=== PATIENT | female | born 1985 | race African-American/Black ===

== ENCOUNTER 2022-09-24 22:11 | Emergency (ER) | payer SELFPAY ==
[~2022-09-24] VITALS: Ht 177.8 cm; Wt 75.0 kg
[2022-09-24 22:34] VITALS: BP 145/79
[2022-09-26] MEDS ORDERED: ACET-2708 MT (05:50)
== END 2022-09-25 02:00 | disposition left against medical advice (07) ==
LOC: ER 22:40
DX: Z53.21 Procedure and treatment not carried out due to patient leaving prior to being seen by health care provider (principal)
CPT/HCPCS: 93005

== ENCOUNTER 2022-09-25 21:11 | Emergency (ER) | payer SELFPAY ==
[~2022-09-25] VITALS: Ht 177.8 cm; Wt 84.4 kg
[2022-09-25 23:13] VITALS: BP 138/87
[2022-09-25] MEDS ORDERED: IBUPROFEN 600MG TABLET PO ONE (23:15)
[2022-09-26] MEDS ORDERED: ACET-2708 MT (05:50)
== END 2022-09-26 01:31 | disposition home or self-care (01) ==
LOC: ER 21:11
DX: R60.0 Localized edema (principal); G40.909 Epilepsy, unspecified, not intractable, without status epilepticus; J45.909 Unspecified asthma, uncomplicated; M19.90 Unspecified osteoarthritis, unspecified site; Z87.828 Personal history of other (healed) physical injury and trauma
CPT/HCPCS: 93970; 99284

== ENCOUNTER 2022-09-26 01:45 | Emergency (ER) | payer SELFPAY ==
[~2022-09-26] VITALS: Ht 177.8 cm; Wt 87.0 kg
[2022-09-26 01:58] VITALS: BP 128/71
[2022-09-26] MEDS ORDERED: ACET-2708 MT (05:50)
== END 2022-09-26 06:31 | disposition home or self-care (01) ==
LOC: ER 01:45
DX: M25.562 Pain in left knee (principal); M25.572 Pain in left ankle and joints of left foot; M25.532 Pain in left wrist; R00.0 Tachycardia, unspecified; G40.909 Epilepsy, unspecified, not intractable, without status epilepticus; J45.909 Unspecified asthma, uncomplicated; M19.90 Unspecified osteoarthritis, unspecified site
CPT/HCPCS: 99281